=== PATIENT | female | born 1960 | race Caucasian/White ===

== ENCOUNTER → 2020-08-06 08:23 | Outpatient (CLI) | payer OTHER, SELFPAY ==
--- NOTE | 2020-08-06 08:26 | MM_ITS ---
PROCEDURE: MM DIG SCREENING MAMM BI W/CAD Digital Breast Tomosynthesis Included CLINICAL INDICATION: SCREENING There is no personal or family history of breast cancer. COMPARISON: MG [facility] BILATERAL SCREENING from 11/03/2016 MG Screening Mamm w/cad from 12/25/2017 MG Screening Mamm w/cad from 02/21/2019 TECHNIQUE: Standard CC and MLO images and 3D Tomosynthesis was obtained. R2 CAD reviewed. FINDINGS: Moderate diffuse fibroglandular densities are seen throughout both breast. The findings are bilateral and symmetrical. There is no new or suspicious lesion in either breast and no suspicious microcalcifications. IMPRESSION: Fibrofatty parenchyma with no suspicious lesions seen BI-RAD Category: 1 Negative FOLLOW-UP: 1YR 1 Year Follow-up (A letter has been sent to the patient regarding results of the study.) Dictated by: Dr. Charles Stafford MD 08/12/2020 08:46 Dr. Charles Stafford MD in [place] 08/12/2020 08:46
== END ==
PROVIDERS: PCP Internal Medicine; Visit Provider Internal Medicine
DX: Z12.31 Encounter for screening mammogram for malignant neoplasm of breast (principal)
CPT/HCPCS: 77063; 77067

== ENCOUNTER → 2021-01-23 14:49 | Outpatient (POV) | payer OTHER, SELFPAY | DX: Z00.00 Encounter for general adult medical examination without abnormal findings (principal) ==

== ENCOUNTER → 2021-08-05 18:20 | Outpatient (CLI) | payer OTHER, SELFPAY ==
[2021-08-05 18:57] LABS: Basophils % 0.7 % (0.1-2.0); Eosinophils # 0.2 K/mm3 (0.0-0.4); Eosinophils % 3.1 % (0.1-12.0); Hematocrit 39.2 % (37.0-47.0); Hemoglobin 12.9 g/dL (12.2-16.2); Lymphocytes # 1.2 K/mm3 (0.7-4.5); Lymphocytes % 22.7 % (10-50); Mean Corpuscular Hemoglobin 28.9 pg (27.0-31.2); Mean Corpuscular Volume 87.4 fl (81-99); Mean Platelet Volume 9.2 fl (7.4-10.4); Monocytes # 0.2 K/mm3 (0.1-1.0); Monocytes % 4.3 % (1.7-9.3); Neutrophils # 3.7 K/mm3 (1.8-7.8); Neutrophils % 69.1 % (37.0-80.0); Platelet Count 188 K/mm3 (142-424); Red Blood Count 4.49 M/mm3 (4.20-5.40); Red Cell Distribution Width 14.4 % (11.5-17.5); White Blood Count 5.3 K/mm3 (4.8-10.8)
[2021-08-05 19:54] LABS: Alanine Aminotransferase 15 U/L (12-78); Albumin Level 4.2 g/dl (3.5-5.0); Albumin/Globulin Ratio 1.6 (1.1-1.8); Alkaline Phosphatase 75 U/L (38-126); Anion Gap 13.3 mEq/L (5-15); Aspartate Amino Transferase 29 U/L (14-36); Bilirubin,Total 1.1 mg/dl (0.2-1.3); Blood Urea Nitrogen 10 mg/dl (7-17); Calcium 9.3 mg/dl (8.4-10.2); Carbon Dioxide 28 mmol/L (22.0-30.0); Chloride 101 mmol/L (98-107); Chol/HDL Ratio 2.4 (1-3.5); Cholesterol 162 mg/dl (140-200); Estimated Glomerular Filt Rate 102 ml/min (>60); GFR (African American) 124 ML/MIN (>60); Globulin 2.7 g/dL (1.3-3.2); Glucose 58 mg/dl (74-100); HDL Cholesterol 67 mg/dl (40-60); Potassium 4.3 mmoL/L (3.5-5.1); Sodium 138 mmol/L (136-145); Total Protein,Serum 6.9 g/dl (6.3-8.2); Triglycerides 80 mg/dl (30-150); VLDL Cholesterol 16 mg/dL (0-40)
[2021-08-05 20:05] LABS: Direct LDL Cholesterol 72.63 mg/dL (100-129)
== END ==
PROVIDERS: Visit Provider Internal Medicine
DX: F41.9 Anxiety disorder, unspecified (principal); E78.5 Hyperlipidemia, unspecified; Z86.2 Personal history of diseases of the blood and blood-forming organs and certain disorders involving the immune mechanism
CPT/HCPCS: 80053; 80061; 85025

== ENCOUNTER → 2021-08-22 13:09 | Outpatient (CLI) | payer OTHER, SELFPAY ==
--- NOTE | 2021-08-22 13:11 | MM_ITS ---
PROCEDURE INFORMATION: Exam: MG Bilateral Screening 3D Mammography Exam date and time: 08/22/2021 1:11 PM Age: 60 years old Clinical indication: Screening exam; No personal or family HX of malignancy TECHNIQUE: Imaging protocol: Bilateral screening tomosynthesis and 2D mammography including computer-aided detection (CAD) when performed. COMPARISON: 1. MG MM DIG SCREENING MAMM BI W/CAD 08/06/2020 8:28 AM 2. MG Screening Mamm w/cad 02/21/2019 9:50 AM FINDINGS: MAMMOGRAPHY: Breast composition: The breast tissue is composed of scattered areas of fibroglandular density. Mass: None. Architectural distortion: None. Calcifications: No suspicious calcifications. Asymmetric density: None. Skin thickening: None. Axillary adenopathy: None. IMPRESSION: No mammographic evidence of malignancy. Annual screening is recommended unless otherwise clinically indicated. ASSESSMENT: BI-RADS Category 1: Negative
== END ==
PROVIDERS: PCP Internal Medicine; Visit Provider Internal Medicine
DX: Z12.31 Encounter for screening mammogram for malignant neoplasm of breast (principal)
CPT/HCPCS: 77063; 77067

== ENCOUNTER → 2022-02-03 14:17 | Outpatient (CLI) | payer OTHER, SELFPAY ==
[2022-02-03 17:06] LABS: Chloride 104 mmol/L (98-107)
[2022-02-03 17:07] LABS: Potassium 4.4 mmoL/L (3.5-5.1); Sodium 139 mmol/L (136-145)
[2022-02-03 17:09] LABS: Alanine Aminotransferase 27 U/L (12-78); Anion Gap 12.4 mEq/L (5-15); Aspartate Amino Transferase 29 U/L (14-36); Blood Urea Nitrogen 15 mg/dl (7-17); Carbon Dioxide 27 mmol/L (22.0-30.0); Estimated Glomerular Filt Rate 85 ml/min (>60); GFR (African American) 103 ML/MIN (>60)
[2022-02-03 17:10] LABS: Albumin Level 4.2 g/dl (3.5-5.0); Albumin/Globulin Ratio 1.8 (1.1-1.8); Alkaline Phosphatase 80 U/L (38-126); Calcium 9.5 mg/dl (8.4-10.2); Chol/HDL Ratio 2.9 (1-3.5); Cholesterol 188 mg/dl (140-200); Globulin 2.3 g/dL (1.3-3.2); Glucose 77 mg/dl (74-100); HDL Cholesterol 65 mg/dl (40-60); Total Protein,Serum 6.5 g/dl (6.3-8.2); Triglycerides 71 mg/dl (30-150); VLDL Cholesterol 14 mg/dL (0-40)
[2022-02-03 17:21] LABS: Direct LDL Cholesterol 103.28 mg/dL (100-129)
== END ==
PROVIDERS: PCP Internal Medicine; Visit Provider Internal Medicine
DX: E78.5 Hyperlipidemia, unspecified (principal); F41.9 Anxiety disorder, unspecified; Z86.2 Personal history of diseases of the blood and blood-forming organs and certain disorders involving the immune mechanism
CPT/HCPCS: 80053; 80061

== ENCOUNTER → 2022-09-16 07:51 | Outpatient (CLI) | payer OTHER, SELFPAY ==
--- NOTE | 2022-09-16 07:54 | MM_ITS ---
PROCEDURE INFORMATION: Exam: MG Bilateral Screening 3D Mammography Exam date and time: 09/16/2022 8:01 AM Age: 61 years old Clinical indication: Screening examination. No family history of breast cancer. TECHNIQUE: Imaging protocol: Bilateral Screening tomosynthesis and 2D mammography including computer-aided detection (CAD) when performed. COMPARISON: 1. MG MM DIG SCREENING MAMM BI W/CAD 08/22/2021 1:29 PM 2. MG MM DIG SCREENING MAMM BI W/CAD 08/06/2020 8:28 AM 3. MG Screening Mamm w/cad 02/21/2019 9:50 AM FINDINGS: MAMMOGRAPHY: Breast composition: There are scattered areas of fibroglandular density. Mass: None. Architectural distortion: None. Calcifications: No suspicious calcifications. Asymmetric density: None. Skin thickening: None. Axillary adenopathy: None. IMPRESSION: No mammographic evidence of malignancy. Annual screening is recommended unless otherwise clinically indicated. ASSESSMENT: BI-RADS Category 1: Negative
== END ==
PROVIDERS: PCP Internal Medicine; Visit Provider Internal Medicine
DX: Z12.31 Encounter for screening mammogram for malignant neoplasm of breast (principal)
CPT/HCPCS: 77063; 77067

== ENCOUNTER → 2023-03-06 14:20 | Outpatient (CLI) | payer BC, SELFPAY ==
[2023-03-06 15:21] LABS: Basophils % 0.5 % (0.1-2.0); Eosinophils # 0.1 K/mm3 (0.0-0.4); Eosinophils % 2.8 % (0.1-12.0); Hematocrit 30.8 % (37.0-47.0); Hemoglobin 10.1 g/dL (12.2-16.2); Lymphocytes # 0.3 K/mm3 (0.7-4.5); Lymphocytes % 7.8 % (10-50); Mean Corpuscular Hemoglobin 30.3 pg (27.0-31.2); Mean Corpuscular Volume 92.1 fl (81-99); Mean Platelet Volume 7.7 fl (7.4-10.4); Monocytes # 0.2 K/mm3 (0.1-1.0); Neutrophils # 3.2 K/mm3 (1.8-7.8); Neutrophils % 82.9 % (37.0-80.0); Platelet Count 227 K/mm3 (142-424); Red Blood Count 3.34 M/mm3 (4.20-5.40); Red Cell Distribution Width 17.3 % (11.5-17.5); White Blood Count 3.9 K/mm3 (4.8-10.8)
[2023-03-06 15:44] LABS: Alanine Aminotransferase 15 U/L (12-78); Albumin/Globulin Ratio 1.5 (1.1-1.8); Alkaline Phosphatase 86 U/L (38-126); Anion Gap 15.9 mEq/L (5-15); Aspartate Amino Transferase 26 U/L (14-36); Bilirubin,Total 0.9 mg/dl (0.2-1.3); Blood Urea Nitrogen 21 mg/dl (7-17); Calcium 9.6 mg/dl (8.4-10.2); Carbon Dioxide 30 mmol/L (22.0-30.0); Chloride 95 mmol/L (98-107); Chol/HDL Ratio 3.8 (1-3.5); Cholesterol 221 mg/dl (140-200); Estimated Glomerular Filt Rate 85 ml/min (>60); GFR (African American) 103 ML/MIN (>60); Globulin 2.7 g/dL (1.3-3.2); Glucose 99 mg/dl (74-100); HDL Cholesterol 58 mg/dl (40-60); Potassium 3.9 mmoL/L (3.5-5.1); Sodium 137 mmol/L (136-145); Total Protein,Serum 6.7 g/dl (6.3-8.2); Triglycerides 145 mg/dl (30-150); VLDL Cholesterol 29 mg/dL (0-40)
[2023-03-06 15:55] LABS: Direct LDL Cholesterol 121.25 mg/dL (100-129)
== END ==
PROVIDERS: PCP Internal Medicine; Visit Provider Internal Medicine
DX: E78.5 Hyperlipidemia, unspecified (principal); C02.9 Malignant neoplasm of tongue, unspecified; R63.4 Abnormal weight loss
CPT/HCPCS: 80053; 80061; 85025

== ENCOUNTER → 2023-03-31 10:48 | Outpatient (CLI) | payer BC, SELFPAY ==
--- NOTE | 2023-03-31 10:53 | FL_ITS ---
FINAL REPORT CLINICAL HISTORY: Malignant tumor of head & neck. Dysphagia. FINDINGS: MODIFIED BARIUM SWALLOW History: Dysphagia. FINDINGS: Fluoroscopy was provided for the speech pathologist to evaluate the swallowing mechanism. The patient was given several different consistencies of barium while the swallow was visualized fluoroscopically. The report of the speech pathologist should be consulted prior to making dietary decisions. There is a significant stricture of the cervical esophagus beginning at the C5-C6 level. FLUOROSCOPY TIME: 2 minutes 39 seconds. 15 cine runs were obtained. IMPRESSION: Significant stricture of the cervical esophagus. Endoscopic correlation recommended. Modified barium swallow under fluoroscopic guidance. Please see the report of the speech pathologist for more detail. Films reviewed , interpreted and dictated by Dr. Norris. Transcribed by Cheikh Richard PA-C. Reviewed, Interpreted and Dictated by Severo Norris MD Transcribed by BRANDON Ponce Authenticated and [facility]
--- NOTE | 2023-03-31 15:02 | HMH.SLMBS2 ---
Speech & Language Evaluation Speech/Language Mod Barium Swallow Start: 03/31/23 14:36 Freq: once Status: Complete Protocol: Document 03/31/23 14:36 ANTONIOTRACEE (Rec: 03/31/23 15:01 [id number]) General Information General Current Food Consistency NPO Dentition Poor Dentition Oxygen Status Room Air Facial Symmetry Symmetrical Patient Orientation Person,Place,Time,Situation Ability to Follow Directions Excellent Communication Ability No Impairment MBS Recommendations Diet Dietary Recommendations NPO,Other Comment Small trials of water to regularly engage swallowing mechanism Treatment/Strategies Strategy/Precaution Recommend Sitting Upright (90 deg),Small Bites and Sips Referrals/Other Other Recommendations SUPPORT REPRESENTATIVE contacted referring ENT regarding treatment for internal lymphadema. Mod Barium Swallow Impressions Summary and Impressions Oral Phase Impression Mild Impairment Oral Phase Summary Solids not trialed 2' minimal bolus flow through the pharynx and UES. Adequate bolus formation and AP transit with thins and puree. Minimal premature spillage into the pharynx. No significant oral residue noted. Pharyngeal Phase Impression Severe Impairment Pharyngeal Phase Summary Severe pharyngeal impairment noted on MBSS. <10% of bolus was able to flow through the pharynx and through the UES 2' pharyngeal edema. Retrograde flow of material around the swelling site. As pt was unable to clear bolus, penetration and aspiration were noted while pt was attempting to respirate after the swallow. Pt was sensate to aspiration and penetration and was able to clear all material from the laryngeal vestibule. Retrograde flow of material into the oral cavity was noted, and pt had to expectorate majority of bolus. SUPPORT REPRESENTATIVE attempted chin tuck and liquid wash,
== END ==
PROVIDERS: PCP Internal Medicine; Visit Provider Otolaryngology
DX: C76.0 Malignant neoplasm of head, face and neck (principal)
CPT/HCPCS: 70371; 92611

== ENCOUNTER 2023-05-20 15:30 | Outpatient (RCR) | payer BC, SELFPAY | END 2023-05-20 16:45 | disposition home or self-care (01) | LOC: PT 15:30 | PROVIDERS: PCP Internal Medicine; Visit Provider Otolaryngology | DX: I89.0 Lymphedema, not elsewhere classified (principal); R13.10 Dysphagia, unspecified | CPT/HCPCS: 97140; 97163; 97164 ==

== ENCOUNTER → 2023-08-28 15:19 | Outpatient (CLI) | payer BC, SELFPAY ==
[2023-08-28 16:33] LABS: Basophils % 0.1 % (0.1-2.0); Eosinophils # 0.1 K/mm3 (0.0-0.4); Eosinophils % 1.7 % (0.1-12.0); Hematocrit 30.3 % (37.0-47.0); Hemoglobin 10.2 g/dL (12.2-16.2); Lymphocytes # 0.3 K/mm3 (0.7-4.5); Lymphocytes % 5.7 % (10-50); Mean Corpuscular HGB Conc 33.8 g/dL (31.8-35.4); Mean Corpuscular Hemoglobin 30.4 pg (27.0-31.2); Mean Corpuscular Volume 89.9 fl (81-99); Mean Platelet Volume 9.2 fl (7.4-10.4); Monocytes # 0.2 K/mm3 (0.1-1.0); Monocytes % 5.4 % (1.7-9.3); Neutrophils # 3.9 K/mm3 (1.8-7.8); Neutrophils % 87.1 % (37.0-80.0); Platelet Count 204 K/mm3 (142-424); Red Blood Count 3.37 M/mm3 (4.20-5.40); Red Cell Distribution Width 14.9 % (11.5-17.5); White Blood Count 4.4 K/mm3 (4.8-10.8)
[2023-08-28 16:34] LABS: MANUAL DIFFERENTIAL MANUAL DIFFERENTIAL (MANUAL DIFF)
[2023-08-28 17:31] LABS: Alanine Aminotransferase 23 U/L (12-78); Albumin Level 4.3 g/dl (3.5-5.0); Albumin/Globulin Ratio 1.5 (1.1-1.8); Alkaline Phosphatase 88 U/L (38-126); Anion Gap 13.6 mEq/L (5-15); Aspartate Amino Transferase 29 U/L (14-36); Bilirubin,Total 0.6 mg/dl (0.2-1.3); Blood Urea Nitrogen 25 mg/dl (7-17); Calcium 9.8 mg/dl (8.4-10.2); Carbon Dioxide 29 mmol/L (22.0-30.0); Chloride 98 mmol/L (98-107); Chol/HDL Ratio 5.3 (1-3.5); Cholesterol 218 mg/dl (140-200); Estimated Glomerular Filt Rate 73 ml/min (>60); GFR (African American) 88 ML/MIN (>60); Globulin 2.8 g/dL (1.3-3.2); Glucose 73 mg/dl (74-100); HDL Cholesterol 41 mg/dl (40-60); Potassium 4.6 mmoL/L (3.5-5.1); Sodium 136 mmol/L (136-145); Total Protein,Serum 7.1 g/dl (6.3-8.2); Triglycerides 156 mg/dl (30-150); VLDL Cholesterol 31 mg/dL (0-40)
[2023-08-28 17:42] LABS: Direct LDL Cholesterol 119.85 mg/dL (100-129)
[2023-08-28 18:51] LABS: Lymphocytes % 10 % (10-50); Monocytes % 1 % (2-9); Neutrophils % 89 % (42-76); Platelet Estimate Normal; RBC Morphology Normal; Total Cells Counted 100
== END ==
PROVIDERS: PCP Internal Medicine; Visit Provider Internal Medicine
DX: R13.12 Dysphagia, oropharyngeal phase (principal); E78.5 Hyperlipidemia, unspecified; D64.9 Anemia, unspecified; C02.9 Malignant neoplasm of tongue, unspecified
CPT/HCPCS: 80053; 80061; 85007; 85025

== ENCOUNTER 2023-10-13 10:42 | Outpatient (CLI) | payer BC, SELFPAY ==
--- NOTE | 2023-10-13 10:48 | MM_ITS ---
PROCEDURE INFORMATION: Exam: MG Bilateral Screening 3D Mammography Exam date and time: 10/13/2023 10:37 AM Age: 62 years old Clinical indication: Screening examination . 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 TECHNIQUE: Imaging protocol: Bilateral Screening tomosynthesis and 2D mammography including computer-aided detection (CAD) when performed. COMPARISON: 1. MG MM DIG SCREENING MAMM BI W/CAD 09/16/2022 8:01 AM 2. MG MM DIG SCREENING MAMM BI W/CAD 08/22/2021 1:29 PM 3. MG MM DIG SCREENING MAMM BI W/CAD 08/06/2020 8:28 AM FINDINGS: MAMMOGRAPHY: Breast composition: The breasts are heterogeneously dense, which may obscure small masses. Mass: No suspicious masses. Architectural distortion: No suspicious distortion. Calcifications: No suspicious calcifications. Asymmetric density: None. Skin thickening: Bilateral diffuse mild skin thickening. Axillary adenopathy: None. IMPRESSION: No mammographic evidence of malignancy. Annual screening is recommended unless otherwise clinically indicated. Bilateral diffuse mild skin thickening is noted, new compared to prior exam. This could be related to patient's reported history of chemotherapy and radiation for malignancy in her throat, per patient. Clinical correlation is recommended with history and physical exam. ASSESSMENT: BI-RADS Category 2: Benign
== END 2023-10-13 23:59 ==
LOC: RAD 10:42
PROVIDERS: PCP Internal Medicine; Visit Provider Internal Medicine
DX: Z12.31 Encounter for screening mammogram for malignant neoplasm of breast (principal)
CPT/HCPCS: 77063; 77067

== ENCOUNTER 2024-02-26 14:34 | Outpatient (CLI) | payer BC, SELFPAY ==
[2024-02-26 15:22] LABS: Basophils % 0.3 % (0.1-2.0); Eosinophils # 0.1 K/mm3 (0.0-0.4); Eosinophils % 1.7 % (0.1-12.0); Hematocrit 36.7 % (37.0-47.0); Hemoglobin 11.8 g/dL (12.2-16.2); Lymphocytes # 0.6 K/mm3 (0.7-4.5); Lymphocytes % 12.4 % (10-50); Mean Corpuscular HGB Conc 32.3 g/dL (31.8-35.4); Mean Corpuscular Hemoglobin 29.3 pg (27.0-31.2); Mean Corpuscular Volume 90.9 fl (81-99); Mean Platelet Volume 8.8 fl (7.4-10.4); Monocytes # 0.3 K/mm3 (0.1-1.0); Monocytes % 5.6 % (1.7-9.3); Neutrophils # 3.5 K/mm3 (1.8-7.8); Platelet Count 167 K/mm3 (142-424); Red Blood Count 4.04 M/mm3 (4.20-5.40); Red Cell Distribution Width 14.3 % (11.5-17.5); White Blood Count 4.4 K/mm3 (4.8-10.8)
[2024-02-26 16:07] LABS: Alanine Aminotransferase 19 U/L (12-78); Albumin Level 4.4 g/dl (3.5-5.0); Albumin/Globulin Ratio 1.7 (1.1-1.8); Alkaline Phosphatase 84 U/L (38-126); Anion Gap 12.4 mEq/L (5-15); Aspartate Amino Transferase 28 U/L (14-36); Blood Urea Nitrogen 21 mg/dl (7-17); Calcium 9.9 mg/dl (8.4-10.2); Carbon Dioxide 31 mmol/L (22.0-30.0); Chloride 98 mmol/L (98-107); Chol/HDL Ratio 2.3 (1-3.5); Cholesterol 204 mg/dl (140-200); Estimated Glomerular Filt Rate 85 ml/min (>60); GFR (African American) 103 ML/MIN (>60); Globulin 2.6 g/dL (1.3-3.2); Glucose 82 mg/dl (74-100); HDL Cholesterol 89 mg/dl (40-60); Potassium 4.4 mmoL/L (3.5-5.1); Sodium 137 mmol/L (136-145); Triglycerides 81 mg/dl (30-150); VLDL Cholesterol 16 mg/dL (0-40)
[2024-02-26 16:17] LABS: Direct LDL Cholesterol 99.16 mg/dL (100-129)
[2024-02-26 16:36] LABS: Thyroid Stimulating Hormone 3.41 uIU/mL (0.465-4.68)
== END 2024-02-26 23:59 | disposition home or self-care (01) ==
LOC: LAB.DROPOF 14:35
PROVIDERS: PCP Internal Medicine; Visit Provider Internal Medicine
DX: E78.5 Hyperlipidemia, unspecified (principal); Z86.2 Personal history of diseases of the blood and blood-forming organs and certain disorders involving the immune mechanism; C02.9 Malignant neoplasm of tongue, unspecified; K21.9 Gastro-esophageal reflux disease without esophagitis; J30.9 Allergic rhinitis, unspecified; R13.12 Dysphagia, oropharyngeal phase; E03.9 Hypothyroidism, unspecified
CPT/HCPCS: 80053; 80061; 84443; 85025

== ENCOUNTER 2024-03-03 15:00 | Outpatient (RCR) | payer BC, SELFPAY | END 2024-03-03 16:00 | disposition home or self-care (01) | LOC: PT 15:00 | PROVIDERS: PCP Internal Medicine; Visit Provider Otolaryngology | DX: I89.0 Lymphedema, not elsewhere classified (principal) | CPT/HCPCS: 97110; 97140; 97163; 97164; 97530 ==

== ENCOUNTER 2024-06-01 10:56 | Outpatient (CLI) | payer BC, SELFPAY ==
--- NOTE | 2024-06-01 10:59 | XR_ITS ---
FINAL REPORT CLINICAL HISTORY: Cough, left posterior chest pain FINDINGS: TWO-VIEW CHEST The heart size is normal. The mediastinum is normal. The lungs are clear. There is no pneumothorax. IMPRESSION: No acute cardiopulmonary process. Reviewed, Interpreted and Dictated by Severo Norris MD Transcribed by Vielka Wilkins Authenticated and . [facility]
== END 2024-06-01 23:59 | disposition home or self-care (01) ==
LOC: RAD 10:57
PROVIDERS: PCP Internal Medicine; Visit Provider Internal Medicine
DX: R05.9 Cough, unspecified (principal); R07.9 Chest pain, unspecified
CPT/HCPCS: 71046